=== PATIENT | female | born 1990 | race Caucasian/White ===

== ENCOUNTER 2017-12-03 09:08 | Emergency (ER) | payer OTHER ==
[~2017-12-03] VITALS: Ht 165.1 cm; Wt 77.1 kg
[~2017-12-03 09:08] MED LIST: ACET500 PO; ALBU90I INH; ALBU90OI INH; Crutch1 EACH MISC; DOXY100 PO; HYDACE5325 PO; IBUP800 PO; MULVITMINE PO; OXYACE5T PO; PENVK500 PO; PRED20 PO; PROM25 PO
[2017-12-03] MEDS ORDERED: Vigamox3 ML BOTHEYES (09:47)
[2017-12-03] MEDS ORDERED: CYCL10 PO (09:54)
== END 2017-12-03 10:00 | disposition home or self-care (01) ==
LOC: ER 09:08
DX: H10.9 Unspecified conjunctivitis (principal)
CPT/HCPCS: 99282

== ENCOUNTER 2022-09-03 10:59 | Day surgery (SDC) | payer OTHER ==
[~2022-09-03] VITALS: Ht 165.1 cm; Wt 81.1 kg
[~2022-09-03 10:59] MED LIST changes: +COMPAZINE10 MG PO; +CYCL10 PO; +Vigamox3 ML BOTHEYES
--- NOTE | 2022-09-03 13:26 | NUR ---
09/03/22 1326 DEX MELVIN 0.15MG OF EPI ADDED TO 30MLS OF ROPIVACAINE 0.5% TO CREATE A LOCAL SOLUTION OF ROPIVACAINE 0.5% WITH EPI 1:200,000. LOCAL POURED ONTO STERILE FIELD FOR USE DURING CASE BY DR. ARELLANO.
--- NOTE | 2022-09-03 14:11 | NUR ---
09/03/22 1411 ZANDER PRADHAN BANDAGE NOTED MEDIAL UPPER LEFT ARM - C,D,I
--- NOTE | 2022-09-03 14:30 | NUR ---
09/03/22 1430 ZANDER PRADHAN PAIN 7-06/18. FENTANYL 25MCG GIVEN IV PUSH. BP 144/77, PULSE 63, O2 SAT 100% ON RA. PT ALERT, EATING AND DRINKING W/O DIFF.
== END 2022-09-03 15:35 | disposition home or self-care (01) ==
LOC: ORSCSDS 10:59
PROVIDERS: Obstetrics & Gynecology
PROC: 0JPV0HZ Removal of Contraceptive Device from Upper Extremity Subcutaneous Tissue and Fascia, Open Approach (ICD-10-PCS; principal; 2022-09-03 12:45)
PROC: 0UB74ZZ Excision of Bilateral Fallopian Tubes, Percutaneous Endoscopic Approach (ICD-10-PCS; principal; 2022-09-03 12:45)
DX: Z30.2 Encounter for sterilization (principal); I10 Essential (primary) hypertension
CPT/HCPCS: 88302; A9270; J0171; J1100; J2250; J2405; J2704; J2710; J2795; J3010

== ENCOUNTER 2022-11-29 14:58 | Emergency (ER) | payer OTHER ==
[~2022-11-29] VITALS: Ht 165.1 cm; Wt 81.7 kg
[2022-11-29 15:45] LABS: Hematocrit 45.7 % (33.0-51.0); Hemoglobin 15.8 g/dL (11.5-16.0); Mean Corpuscular HGB 31.1 pg (26.0-34.0); Mean Corpuscular HGB Conc 34.6 g/dL (31.5-36.5); Mean Corpuscular Volume 90 fL (80-100); RDW Coefficient Variation 11.4 % (11.7-14.2); RDW Standard Deviation 37.5 fL (35.1-46.3); Red Blood Cell Count 5.08 M/mm3 (3.80-5.20); White Blood Cell Count 15.69 K/mm3 (4.00-11.30)
[2022-11-29 15:56] LABS: Albumin, Blood 4.2 g/dL (3.4-5.0); Bilirubin, Total 0.3 mg/dL (0.1-1.0); Bun/Creatinine Ratio 20.3 (12.0-20.0); Calcium, Blood 8.8 mg/dL (8.5-10.1); Creatinine, Blood 0.69 mg/dL (0.40-1.00); Globulin, Blood 4.2 g/dL (2.2-4.0); Potassium, Blood 4.3 mmol/L (3.5-5.5); Total Protein, Blood 8.4 g/dL (6.4-8.2)
[2022-11-29 16:32] LABS: Mean Platelet Volume 9.8 fL (9.1-12.4); Platelet Count 395 K/mm3 (150-400)
[2022-11-29 16:35] LABS: BASOPHILS PERCENT MAN 0 % (0-2); EOSINOPHILS PERCENT MAN 0 % (0-6); LYMPHOCYTES % ATYPICAL MANUAL 1 % (0-0); LYMPHOCYTES ABSOLUTE MAN 1.88 K/mm3 (0.84-5.20); LYMPHOCYTES PERCENT MAN 11 % (21-46); MONOCYTES ABSOLUTE MAN 0.31 K/mm3 (0.16-1.47); MONOCYTES PERCENT MAN 2 % (4-13); NEUTROPHILS ABSOLUTE MAN 13.49 K/mm3 (1.96-9.15); SEG NEUTROPHILS PERCENT MAN 86 % (41-73); TOTAL CELLS COUNTED 100
[2022-11-29] MEDS ORDERED: ONDA4ODT MM (18:39)
[2022-11-29] MEDS ORDERED: PROM12.5S PR (18:39)
== END 2022-11-29 18:53 | disposition home or self-care (01) ==
LOC: ER 14:58
PROVIDERS: Student in an Organized Health Care Education/Training Program
DX: R11.2 Nausea with vomiting, unspecified (principal); F10.129 Alcohol abuse with intoxication, unspecified; E86.0 Dehydration
CPT/HCPCS: 36415; 80053; 83690; 84703; 85025; A9270; J1790; J2405; J7030

== ENCOUNTER 2023-02-09 08:16 | Emergency (ER) | payer OTHER ==
[~2023-02-09] VITALS: Ht 165.1 cm; Wt 81.7 kg
[~2023-02-09 08:16] MED LIST changes: +ONDA4ODT MM; +PROM12.5S PR
== END 2023-02-09 12:00 | disposition home or self-care (01) ==
LOC: ER 08:16
DX: R51.9 Headache, unspecified (principal); W01.190A Fall on same level from slipping, tripping and stumbling with subsequent striking against furniture, initial encounter
CPT/HCPCS: 70450; A9270; J0780; J1200; J1885; J7030